=== PATIENT | female | born 1995 | race Asian ===

== ENCOUNTER → 2019-08-10 | Outpatient (CLI) | payer OTHER ==
--- NOTE | 2019-08-13 07:45 | ECHO ---
DATE OF PROCEDURE: 08/10/2019 AGE: 24 GENDER: Female. HEIGHT: 66 inches. WEIGHT: 160 pounds. BODY SURFACE AREA: 1.82 m2 OUTPATIENT REFERRING PHYSICIAN: MARTITA Acosta INDICATION: Tachycardia. MEASUREMENTS 2-D Measurements: RV: 3.2 cm LV: 4.2 cm Septum: 1.0 cm Posterior wall: 1.0 cm Aortic root: 2.2 cm LA: 3.4 cm LVEF: 675% Doppler Measurements: AV: 1.38 m/s LVOT: 1.1 m/s LVOT diameter: 1.9 cm MV - E 97 A 61 EA ratio 1.6 Early mitral deceleration time: 174 ms E prime medial: 13.3 A prime medial: 9.8 E prime lateral: 16.8 PV: 0.8 m/s Pulmonary artery acceleration time: 150 ms RVSP: 25 mmHg IVC: 1.7 cm COMMENTS: Sinus tachycardia without intraventricular conduction disturbance. M-mode and two-dimensional echocardiography was performed with pulsed, continuous wave, color flow and tissue Doppler studies. Normal left ventricular size, wall thickness and hyperkinetic wall motion. Normal left atrial size and Doppler assessment of LV diastolic function and estimated mean left atrial pressure. Normal right heart chamber sizes and motion and estimated pulmonary arterial pressure. Normal IVC size and collapse against an elevated central venous pressure. Normal appearing and functioning valvular structures. Normal aortic root size. No apparent intracardiac mass or pericardial effusion. No structural or functional abnormality of the heart detected to explain the patient's sinus tachycardia. Would recommend rule out hyperthyroidism or exogenous catecholamine use, excessive caffeine or anemia.
== END ==
LOC: M CARPUL 09:05
PROVIDERS: ATTEND Physician Assistant Medical
DX: R07.9 Chest pain, unspecified (principal); R00.2 Palpitations

== ENCOUNTER → 2019-10-30 | Outpatient (CLI) | payer OTHER ==
[~2019-10-30] MED LIST: METHACHOLINE KIT (J7674) INH ONE
--- NOTE | 2019-10-30 14:48 | PFTRPT ---
Height: 65.50 Inches Weight: 160.00 Lbs BSA: 1.81 Diagnosis: R05 DATE OF PROCEDURE: 10/30/2019 ORDERED BY: Lise Hooper INTERPRETATION: Study of excellent technical quality. Under protocol, methacholine was administered. At a dose of 2.5 mg or 13.875 CDUs, a 40% decline in the FEV1 was noted. PC of 0.55 is significant. Flow rates did return to baseline post bronchodilator administration. IMPRESSION: Positive methacholine challenge study. MTDD
== END ==
LOC: M CARPUL 10-26 13:17
PROVIDERS: ATTEND Nurse Practitioner Family
DX: R05 Cough (principal)

== ENCOUNTER → 2020-02-29 | Outpatient (CLI) | payer OTHER ==
[~2020-02-29] MED LIST changes: +ADV250INH INH; +ALBU8.5H INH; +LOPR1TAB6 PO; -METHACHOLINE KIT (J7674) INH ONE; +PENT10CA PO; +PRED20TA PO; +birth control PO
--- NOTE | 2020-02-29 12:38 | REP ---
REASON FOR EXAM: Asthma. There are no priors for comparison. FINDINGS: The superior mediastinal structures are midline. The cardiac silhouette is unremarkable in size, shape, and position. The diaphragmatic surfaces of the lungs are regular, and the costophrenic angles are clear. The pulmonary law are clear. The imaged osseous structures are intact. IMPRESSION: There is no acute cardiopulmonary disease. Electronically Signed by Bonilla Durbin DO 02/29/2020 04:56 P
== END ==
LOC: M RAD 09:11 → M LAB 09:11
PROVIDERS: ATTEND Nurse Practitioner Family
DX: J45.40 Moderate persistent asthma, uncomplicated (principal)

== ENCOUNTER 2020-03-02 22:04 | Emergency (ER) | payer OTHER ==
[~2020-03-02] VITALS: Ht 167.6 cm; Wt 72.7 kg
[2020-03-02] MEDS ORDERED: LOPR1TAB6 PO (22:14)
[2020-03-02] MEDS ORDERED: ALBU8.5H INH (22:14)
[2020-03-02] MEDS ORDERED: birth control PO (22:14)
[2020-03-02] MEDS ORDERED: PENT10CA PO (22:14)
[2020-03-02] MEDS ORDERED: ADV250INH INH (22:14)
[2020-03-02] MEDS ORDERED: dexameTHASONE 20MG/5ML VIAL (J1100 PER 1MG) IV ONE (22:45)
[2020-03-02] MEDS ORDERED: PRED20TA PO (23:09)
[2020-03-02 23:14] VITALS: BP 125/69
--- NOTE | 2020-03-03 18:22 | REP ---
AP PORTABLE CHEST: 03/02/2020. Comparison: 02/29/2020. Clinical history: Moderate persistent asthma. Findings: The lungs are well inflated. There is no pleural effusion, acute infiltrate, atelectasis or mass. The heart, mediastinal and hilar contours are normal. Aorta and airway are intact. No pneumothorax. Bones are unremarkable. No free air under the diaphragm. Impression: 1. Negative portable chest. Stable examination. Electronically Signed by Nakul Almanza MD 03/03/2020 06:13 P
== END 2020-03-02 23:37 | disposition home or self-care (01) ==
LOC: M ED 22:04
DX: J20.9 Acute bronchitis, unspecified (principal); J45.909 Unspecified asthma, uncomplicated; Z79.3 Long term (current) use of hormonal contraceptives; Z79.899 Other long term (current) drug therapy; Z91.041 Radiographic dye allergy status; Z91.013 Allergy to seafood; Z91.89 Other specified personal risk factors, not elsewhere classified
CPT/HCPCS: 71045; 96374; 99284; J1100